=== PATIENT | male | born 1945 | race Caucasian/White ===

== ENCOUNTER 2023-04-22 17:31 | Emergency (ER) | payer MEDICARE, BC ==
[~2023-04-22] VITALS: Ht 175.3 cm; Wt 77.7 kg
[~2023-04-22 17:31] MED LIST: ASMANEX220 MC1 IH; ASPIR-LOW81 MG PO; CRESTOR10 MG PO; LEVOTHROID50 MCG PO; LEVOTHYROXINE88 MCG PO; NICORELIEF2 MG BUCCAL; PROVENTIL HFA6.7 GM INH; VENTOLIN HFA18 GM INH
[2023-04-22] MEDS ORDERED: LOSARTAN-HCTZ1 EACH PO (17:58)
[2023-04-22 19:22] VITALS: BP 134/78
== END 2023-04-22 19:22 | disposition home or self-care (01) ==
LOC: ED 17:31
DX: T24.201A Burn of second degree of unspecified site of right lower limb, except ankle and foot, initial encounter (principal); T24.202A Burn of second degree of unspecified site of left lower limb, except ankle and foot, initial encounter; T21.25XA Burn of second degree of buttock, initial encounter; X11.8XXA Contact with other hot tap-water, initial encounter; Z79.82 Long term (current) use of aspirin; Z79.899 Other long term (current) drug therapy; Z79.890 Hormone replacement therapy
CPT/HCPCS: 16020; 99283